=== PATIENT | female | born 1970 | race Caucasian/White ===

== ENCOUNTER 2018-03-05 23:20 | Emergency (ER) | payer BC ==
[2018-03-05] MEDS ORDERED: NS 1,000 ML IV ONE (23:30)
--- NOTE | 2018-03-05 23:34 | EDPHY ---
H & P Stated Complaint: syncope-s/p vomiting Time Seen by Provider: 03/05/18 23:31 HPI/ROS: HPI CHIEF COMPLAINT: Syncope, nausea, fever HISTORY OF PRESENT ILLNESS: 47-year-old female, presents emergency room by EMS from private residence for syncopal episode. She states that today she had a routine ultrasound of her kidneys and gallbladder as she has a history of gallstones. She has not been having any abdominal pain. She got home around 11 :00 a.m. This morning or 12 hr ago felt nauseous she laid down felt somewhat lightheaded. No dizziness. No chest pain. No shortness of breath. She then states that shortly after arriving home she got a fever to 102. She laid down most today. This evening she went to bed and got up she felt like she was going to vomit. She then had a syncopal episode. She did not vomit. Denies any chest pain, shortness of breath, denies abdominal pain, denies diarrhea. Past Medical History: Gallstones. Past Surgical History: He denies significant surgical history except for right shoulder Social History: Denies drugs alcohol tobacco. Family History: Noncontributory ROS REVIEW OF SYSTEMS: 10 Systems were reviewed and negative with the exception of the elements mentioned in the history of present illness. Exam Constitutional appears well nontoxic no acute distress triage nursing summary reviewed, vital signs reviewed, awake/alert. Afebrile here. Eyes normal conjunctivae and sclera, EOMI, PERRLA. HENT normal inspection, atraumatic, moist mucus membranes, no epistaxis, neck supple/ no meningismus, no raccoon eyes. Respiratory clear to auscultation bilaterally, normal breath sounds, no respiratory distress, no wheezing. Cardiovascular rate normal, regular rhythm, no murmur, no edema, distal pulses normal. Gastrointestinal soft, non-tender, no rebound, no guarding, normal bowel sounds, no distension, no pulsatile mass. Genitourinary no CVA tenderness. Musculoskeletal no midline vertebral tenderness, full range of motion, no calf swelling, no tenderness of extremities, no meningismus, good pulses, neurovascularly intact. Skin pink, warm, & dry, no rash, skin atraumatic. Neurologic awake, alert and oriented x 3, AAOx3, moves all 4 extremities equally, motor intact, sensory intact, CN II-XII intact, normal cerebellar, normal vision, normal speech. Psychiatric normal mood/affect. Heme/Lymph/Immune no lymphadenopathy. Differential Diagnosis: Includes but is not limited to in a particular order dehydration, acute febrile illness, flu, cardiac arrhythmia, viral syndrome, pneumonia, UTI, Medical Decision Making: Plan for this patient IV establishment IV fluid bolus , EKG, rn cardiac cath, troponin, influenza, chest x-ray, urinalysis, test and re-evaluate. Re-evaluation: EKG interpretation by me on record in [facility] system. Impression time of EKG 2336, sinus rhythm rate of 96 flattening T-wave morphology V1 V2 similar to old EKG.. But no signs of acute ischemia. When I compare this to her old EKG dated March 17 2014 this is unchanged morphology. Troponin 0.00. EKG interpretation by me on record in [facility] system. Impression time of EKG 3:52 a.m., sinus rhythm rate of 89 without any acute signs of ischemia. 4:03 a.m. Patient resting comfortably no acute distress. Ambulated well throughout the emergency without difficulty. No chest pain or shortness of breath does not feel like she is going to pass out feels well after 2 L of fluid. Her workup here in emergency room for syncope as been essentially unremarkable. Troponins are negative EKGs are not acutely ischemic there is no signs of cardiac arrhythmia. She has been monitored for multiple hours here without any signs of cardiac arrhythmia. She has no chest pain or shortness of breath. Electrolytes are appropriate. No fever. Influenza negative. Chest x-ray reviewed unremarkable. I do recommend she remains well-hydrated, rest, return emergency room she has another episode of syncope or does not feel well. Do recommend she also follows up with her primary care doctor She is comfortable being discharged comfortable follow-up planning. Source: Patient, EMS - Personal History LMP (Females 10-55): 8-14 Days Ago Current Tetanus Diphtheria and Acellular Pertussis (TDAP): No - Medical/Surgical History Hx Asthma: No Hx Chronic Respiratory Disease: No Hx Diabetes: No Hx Cardiac Disease: No Hx Renal Disease: No Hx Cirrhosis: No Hx Alcoholism: No Hx HIV/AIDS: No Hx Splenectomy or Spleen Trauma: No Other PMH: Holter monitor, right shoulder surgery, cholethiasis - Social History Smoking Status: Never smoked Constitutional: Initial Vital Signs Temperature (C) 37.2 C 03/05/18 23:25 Heart Rate 98 03/05/18 23:25 Respiratory Rate 16 03/05/18 23:25 Blood Pressure 124/80 H 03/05/18 23:25 O2 Sat (%) 99 03/05/18 23:25 O2 Delivery Mode Room Air Allergies/Adverse Reactions: Sulfa (Sulfonamide Antibiotics) Allergy (Verified 03/05/18 23:24) Home Medications: Medication Instructions Recorded Motrin (*) 03/05/18 Zofran 03/05/18 Medical Decision Making - Diagnostics Imaging Results: Imaging Impressions Chest X-Ray 03/05/18 23:31 Impression: Nothing acute identified. - Data Points Laboratory Results: Laboratory Results 03/05/18 23:30 03/05/18 23:30 03/06/18 03/06/18 03/05/18 04:04 00:52 23:40 WBC RBC Hgb Hct MCV MCH MCHC RDW Plt Count MPV Neut % (Auto) Lymph % (Auto) [place] % (Auto) Eos % (Auto) Baso % (Auto) Nucleat RBC Rel Count Absolute Neuts (auto) Absolute Lymphs (auto) Absolute Monos (auto) Absolute Eos (auto) Absolute Basos (auto) Absolute Nucleated RBC Immature Gran % Immature Gran # RBC/WBC/PLT Morphology Platelet Estimate Sodium Potassium Chloride Carbon Dioxide Anion Gap BUN Creatinine Estimated GFR Glucose Calcium Magnesium Total Bilirubin Conjugated Bilirubin Unconjugated Bilirubin AST ALT Alkaline Phosphatase POC Troponin I 0.00 ng/mL ng/mL 0.00 ng/mL ng/mL (0.00-0.08) (0.00-0.08) NT-Pro-B Natriuret Pep Total Protein Albumin Lipase Beta HCG, Qual Urine Color YELLOW Urine Appearance CLEAR Urine pH 7.0 (5.0-7.5) Ur Specific [place] 1.005 (1.002-1.030) Urine Protein NEGATIVE (NEGATIVE) Urine Ketones 1+ H (NEGATIVE) Urine Blood NEGATIVE (NEGATIVE) Urine Nitrate NEGATIVE (NEGATIVE) Urine Bilirubin NEGATIVE (NEGATIVE) Urine Urobilinogen NEGATIVE EU EU (0.2-1.0) Ur Leukocyte Esterase NEGATIVE (NEGATIVE) Urine Glucose NEGATIVE (NEGATIVE) Nasal Influenza A PCR Nasal Influenza B PCR 03/05/18 03/05/18 03/05/18 23:40 23:30 23:30 WBC RBC Hgb Hct MCV MCH MCHC RDW Plt Count MPV Neut % (Auto) Lymph % (Auto) [place] % (Auto) Eos % (Auto) Baso % (Auto) Nucleat RBC Rel Count Absolute Neuts (auto) Absolute Lymphs (auto) Absolute Monos (auto) Absolute Eos (auto) Absolute Basos (auto) Absolute Nucleated RBC Immature Gran % Immature Gran # RBC/WBC/PLT Morphology Platelet Estimate Sodium 133 mEq/L L mEq/L (135-145) Potassium 4.3 mEq/L mEq/L (3.5-5.2) Chloride 104 mEq/L mEq/L (97-110) Carbon Dioxide 22 mEq/l mEq/l (22-31) Anion Gap 7 mEq/L mEq/L (6-14) BUN 16 mg/dL mg/dL (7-23) Creatinine 0.9 mg/dL mg/dL (0.6-1.0) Estimated GFR > 60 Glucose 141 mg/dL H mg/dL (70-100) Calcium 8.8 mg/dL mg/dL (8.5-10.4) Magnesium 1.8 mg/dL mg/dL (1.6-2.3) Total Bilirubin 0.7 mg/dL mg/dL (0.1-1.4) Conjugated Bilirubin 0.1 mg/dL mg/dL (0.0-0.5) Unconjugated Bilirubin 0.6 mg/dL mg/dL (0.0-1.1) AST 15 IU/L IU/L (14-46) ALT 17 IU/L IU/L (9-52) Alkaline Phosphatase 74 IU/L IU/L (38-126) POC Troponin I NT-Pro-B Natriuret Pep 116 pg/mL pg/mL (0-125) Total Protein 6.4 g/dL g/dL (6.3-8.2) Albumin 3.5 g/dL g/dL (3.5-5.0) Lipase 103 IU/L IU/L (23-300) Beta HCG, Qual NEGATIVE Urine Color Urine Appearance Urine pH Ur Specific [place] Urine Protein Urine Ketones Urine Blood Urine Nitrate Urine Bilirubin Urine Urobilinogen Ur Leukocyte Esterase Urine Glucose Nasal Influenza A PCR NEGATIVE FOR FLU A (NEGATIVE) Nasal Influenza B PCR NEGATIVE FOR FLU B (NEGATIVE) 03/05/18 23:30 WBC 8.65 10^3/uL 10^3/uL (3.80-9.50) RBC 4.51 10^6/uL 10^6/uL (4.18-5.33) Hgb 12.8 g/dL g/dL (12.6-16.3) Hct 38.2 % % (38.0-47.0) MCV 84.7 fL fL (81.5-99.8) MCH 28.4 pg pg (27.9-34.1) MCHC 33.5 g/dL g/dL (32.4-36.7) RDW 13.9 % % (11.5-15.2) Plt Count 242 10^3/uL 10^3/uL (150-400) MPV 10.8 fL fL (8.7-11.7) Neut % (Auto) 90.8 % H % (39.3-74.2) Lymph % (Auto) 6.8 % L % (15.0-45.0) [place] % (Auto) 1.7 % L % (4.5-13.0) Eos % (Auto) 0.1 % L % (0.6-7.6) Baso % (Auto) 0.3 % % (0.3-1.7) Nucleat RBC Rel Count 0.0 % % (0.0-0.2) Absolute Neuts (auto) 7.85 10^3/uL H 10^3/uL (1.70-6.50) Absolute Lymphs (auto) 0.59 10^3/uL L 10^3/uL (1.00-3.00) Absolute Monos (auto) 0.15 10^3/uL L 10^3/uL (0.30-0.80) Absolute Eos (auto) 0.01 10^3/uL L 10^3/uL (0.03-0.40) Absolute Basos (auto) 0.03 10^3/uL 10^3/uL (0.02-0.10) Absolute Nucleated RBC 0.00 10^3/uL 10^3/uL (0-0.01) Immature Gran % 0.3 % % (0.0-1.1) Immature Gran # 0.03 10^3/uL 10^3/uL (0.00-0.10) RBC/WBC/PLT Morphology TNP Platelet Estimate TNP Sodium Potassium Chloride Carbon Dioxide Anion Gap BUN Creatinine Estimated GFR Glucose Calcium Magnesium Total Bilirubin Conjugated Bilirubin Unconjugated Bilirubin AST ALT Alkaline Phosphatase POC Troponin I NT-Pro-B Natriuret Pep Total Protein Albumin Lipase Beta HCG, Qual Urine Color Urine Appearance Urine pH Ur Specific [place] Urine Protein Urine Ketones Urine Blood Urine Nitrate Urine Bilirubin Urine Urobilinogen Ur Leukocyte Esterase Urine Glucose Nasal Influenza A PCR Nasal Influenza B PCR Medications Given: Discontinued Medications Sodium Chloride (Ns) 1,000 mls @ 0 mls/hr IV EDNOW ONE; Wide Open PRN Reason: Protocol Stop: 03/05/18 23:31 Last Admin: 03/05/18 23:34 Dose: 1,000 mls Sodium Chloride (Ns) 1,000 mls @ 0 mls/hr IV ONCE ONE PRN Reason: Wide Open Stop: 03/06/18 00:51 Last Admin: 03/06/18 00:58 Dose: 1,000 mls Point of Care Test Results: Chemistry 03/06/18 03/05/18 04:04 23:40 POC Troponin I 0.00 ng/mL ng/mL 0.00 ng/mL ng/mL (0.00-0.08) (0.00-0.08) Departure - Departure Disposition: Home, Routine, Self-Care Clinical Impression: Syncope Qualifiers: Syncope type: unspecified Qualified Code(s): R55 - Syncope and collapse Condition: Good Instructions: Syncope (ED) Additional Instructions: 1. Stay well-hydrated drink lots of fluids. 2. Return emergency room if there is worsening symptoms includes passing out, chest pain, shortness of breath or not feeling well. Referrals: Patient,NotPresent [Unknown] - As per Instructions
[2018-03-05 23:39] LABS: PLATELET COUNT 242 10^3/uL (150-400)
[2018-03-06] MEDS ORDERED: NS 1,000 ML IV ONE (00:50)
[2018-03-06 04:09] VITALS: BP 124/73
--- NOTE | 2018-03-13 07:51 | CPEKG ---
Test Reason : OPEN Blood Pressure : / mmHG Vent. Rate : 089 BPM Atrial Rate : 089 BPM P-R Int : 153 ms QRS Dur : 071 ms QT Int : 412 ms P-R-T Axes : 080 027 009 degrees QTc Int : 502 ms Sinus rhythm Low voltage, extremity leads Borderline prolonged QT interval Confirmed by Cal Majano ([id number]) on 03/13/2018 7:50:31 AM Referred By: Confirmed By:Cal Majano
--- NOTE | 2018-03-13 07:51 | CPEKG ---
Test Reason : OPEN Blood Pressure : / mmHG Vent. Rate : 096 BPM Atrial Rate : 096 BPM P-R Int : 148 ms QRS Dur : 084 ms QT Int : 375 ms P-R-T Axes : 074 032 060 degrees QTc Int : 474 ms Sinus rhythm Borderline T wave abnormalities Confirmed by Cal Majano ([id number]) on 03/13/2018 7:50:31 AM Referred By: Confirmed By:Cal Majano
== END 2018-03-06 04:33 | disposition home or self-care (01) ==
LOC: EDUNIT#
DX: R55 Syncope and collapse (principal); E86.9 Volume depletion, unspecified; R11.0 Nausea; R50.9 Fever, unspecified; Z87.19 Personal history of other diseases of the digestive system; Z88.2 Allergy status to sulfonamides
CPT/HCPCS: 84484-PO

== ENCOUNTER 2018-05-12 06:13 | Emergency (ER) | payer BC | END 2018-05-12 08:25 | disposition home or self-care (01) ==